=== PATIENT | female | born 1955 | race Caucasian/White ===

== ENCOUNTER 2019-12-19 09:26 | Day surgery (SDC) | payer OTHER, SELFPAY ==
[~2019-12-19] VITALS: Ht 152.4 cm; Wt 61.2 kg
[2019-12-19] MEDS ORDERED: fentaNYL citrate 0.05 MG/ML VIAL ONE (11:48)
[2019-12-19] MEDS ORDERED: MIDAZOLAM 2 MG/2 ML VIAL ONE (11:48)
[2019-12-19] MEDS ORDERED: LIDOCAINE 2% 100 MG/5 ML UJET TP ONE (11:48)
[2019-12-19] MEDS ORDERED: diphenhydrAMINE 50 MG/ML VIAL ONE (11:48)
[2019-12-19] MEDS ORDERED: fentaNYL citrate 0.05 MG/ML VIAL IVP ONE (13:25)
[2019-12-19] MEDS ORDERED: MIDAZOLAM 2 MG/2 ML VIAL IVP ONE (13:25)
== END 2019-12-19 13:40 | disposition home or self-care (01) ==
LOC: MDS 09:26 → MMU 10:37 → MDS 13:40
PROVIDERS: ATTEND Internal Medicine Gastroenterology
DX: Z12.11 Encounter for screening for malignant neoplasm of colon (principal); I10 Essential (primary) hypertension; E11.9 Type 2 diabetes mellitus without complications; Z90.710 Acquired absence of both cervix and uterus; Z79.84 Long term (current) use of oral hypoglycemic drugs; Z79.899 Other long term (current) drug therapy; Z90.49 Acquired absence of other specified parts of digestive tract; Z20.828 Contact with and (suspected) exposure to other viral communicable diseases
CPT/HCPCS: 45378; J2250; J3010; U0003; J1200

== ENCOUNTER 2020-01-04 05:53 | Day surgery (SDC) | payer OTHER, SELFPAY ==
[~2020-01-04] VITALS: Ht 152.4 cm; Wt 59.9 kg
[2020-01-04] MEDS ORDERED: LIDOCAINE 2% 100 MG/5 ML UJET TP ONE (07:50)
[2020-01-04] MEDS ORDERED: fentaNYL citrate 0.05 MG/ML VIAL ONE (07:50)
[2020-01-04] MEDS ORDERED: METHYLENE BLUE 1% 10 MG/ML AMP ONE (08:11)
[2020-01-04] MEDS ORDERED: HETASTARCH 6% 500 ML IV ONE (08:12)
[2020-01-04] MEDS ORDERED: fentaNYL citrate 0.05 MG/ML VIAL IVP ONE (10:55)
[2020-01-04] MEDS ORDERED: EPINEPHrine PFS 0.1 MG/ML SYR IVP ONE (11:25)
[2020-01-04] MEDS ORDERED: SIMETHICONE 40 MG/0.6 ML ONE (11:25)
[2020-01-04] MEDS ORDERED: GLUCAGON 1 MG VIAL ONE (11:25)
== END 2020-01-04 11:30 | disposition home or self-care (01) ==
LOC: MMU 05:53 → MDS 05:53 → MTU 05:56 → MDS 11:30
PROVIDERS: ATTEND Internal Medicine Gastroenterology
DX: Z12.11 Encounter for screening for malignant neoplasm of colon (principal); K63.5 Polyp of colon; E11.9 Type 2 diabetes mellitus without complications; Z90.710 Acquired absence of both cervix and uterus; Z90.49 Acquired absence of other specified parts of digestive tract; Z79.84 Long term (current) use of oral hypoglycemic drugs; Z79.899 Other long term (current) drug therapy; Z20.828 Contact with and (suspected) exposure to other viral communicable diseases
CPT/HCPCS: 45381; 45385; J0171; J1610; J3010; Q9968; U0003; 88305

== ENCOUNTER 2020-02-14 08:35 | Outpatient (CLI) | payer OTHER, SELFPAY | END 2020-02-14 23:59 | disposition home or self-care (01) | LOC: MLB 08:35 → EDSTATUS 05-16 08:20 | PROVIDERS: ATTEND Internal Medicine Gastroenterology | DX: Z01.812 Encounter for preprocedural laboratory examination (principal); Z20.828 Contact with and (suspected) exposure to other viral communicable diseases; Z53.8 Procedure and treatment not carried out for other reasons | CPT/HCPCS: U0003 ==

== ENCOUNTER 2020-05-16 05:40 | Day surgery (SDC) | payer OTHER, SELFPAY ==
[2020-05-16] MEDS ORDERED: diphenhydrAMINE 50 MG/ML VIAL ONE (07:26)
[2020-05-16] MEDS ORDERED: fentaNYL citrate 0.05 MG/ML VIAL ONE (07:26)
[2020-05-16] MEDS ORDERED: LIDOCAINE 2% 100 MG/5 ML UJET TP ONE (07:27)
[2020-05-16] MEDS ORDERED: MIDAZOLAM 5 MG/5 ML VIAL ONE (07:27)
[2020-05-16] MEDS ORDERED: LIDOCAINE JELLY 2% 30 ML TUBE TP ONE (08:10)
[2020-05-16] MEDS ORDERED: fentaNYL citrate 0.05 MG/ML VIAL IVP ONE (08:35)
== END 2020-05-16 09:15 | disposition home or self-care (01) ==
LOC: MDS 05:40 → MMU 06:17 → MDS 09:15
PROVIDERS: ATTEND Internal Medicine Gastroenterology
DX: Z09 Encounter for follow-up examination after completed treatment for conditions other than malignant neoplasm (principal); Z86.010 Personal history of colon polyps; K64.8 Other hemorrhoids; Z20.828 Contact with and (suspected) exposure to other viral communicable diseases
CPT/HCPCS: 45378; J3010; U0003; J1200; J2250